=== PATIENT | female | born 1990 | race American Indian/Alaskan Native ===

== ENCOUNTER 2017-12-03 10:26 | Emergency (ER) | payer BC ==
[2017-12-03 10:50] VITALS: BP 125/69
[2017-12-03 11:21] LABS: Bacteria,Urine 1+ /HPF (Negative); Bilirubin,Urine NEG (Negative); Blood,Urine NEG (Negative); Color,Urine Yellow (Yellow); Mucus,Urine 2+ /HPF; Protein,Urine <15 mg/dL mg/dL (Negative); Urobilinogen,Urine < 2.0 mg/dL (<2.0)
[2017-12-03 11:23] LABS: HCG Qualitative,Urine Positive (Negative)
--- NOTE | 2017-12-03 12:34 | Emergency Department Report ---
Blank Doc - Documentation Documentation: Patient is a 27-year-old female who had a positive test at home several days ago. Patient has experiencing some crampy lower abdominal discomfort. Pain is mostly on the left side as she was advised after calling a nurse hotline that she should come to the emergency department to rule out ectopic with an ultrasound. Patient is not bleeding there is no vaginal discharge dysuria time. Brief physical exam patient has a benign abdomen ultrasound will be done.
--- NOTE | 2017-12-03 14:14 | Ultrasound Report ---
FINAL REPORT PROCEDURE: US OB TRANSVAGINAL and transabdominal TECHNIQUE: Real-time transabdominal and transvaginal sonography of the uterus, placenta, amniotic fluid, adnexa, and fetus was performed with image documentation. Measurements were obtained to determine age/size. M-mode Doppler was used to document heartbeat. CPT 85166 and 29308 HISTORY: preg with vag bleeding COMPARISON: No prior studies are available for comparison. FINDINGS: Uterus measures 8.2 x 5.5 x 6.2 centimeters. Endometrium measures 18 millimeters in thickness. A small amount of endometrial fluid is present. No intrauterine gestational sac is seen. Cervix: Normal. Right Ovary: Normal. Left Ovary: There is a 2.4 centimeter simple cyst No free fluid or adnexal mass is identified IMPRESSION: No intrauterine gestational sac is seen. Cannot exclude early gestation or ectopic . Recommend follow-up.
--- NOTE | 2017-12-03 14:14 | Ultrasound Report ---
FINAL REPORT PROCEDURE: US OB TRANSVAGINAL and transabdominal TECHNIQUE: Real-time transabdominal and transvaginal sonography of the uterus, placenta, amniotic fluid, adnexa, and fetus was performed with image documentation. Measurements were obtained to determine age/size. M-mode Doppler was used to document heartbeat. CPT 94701 and 87959 HISTORY: preg with vag bleeding COMPARISON: No prior studies are available for comparison. FINDINGS: Uterus measures 8.2 x 5.5 x 6.2 centimeters. Endometrium measures 18 millimeters in thickness. A small amount of endometrial fluid is present. No intrauterine gestational sac is seen. Cervix: Normal. Right Ovary: Normal. Left Ovary: There is a 2.4 centimeter simple cyst No free fluid or adnexal mass is identified IMPRESSION: No intrauterine gestational sac is seen. Cannot exclude early gestation or ectopic . Recommend follow-up. PROCEDURE: TECHNIQUE: HISTORY: COMPARISON: FINDINGS: IMPRESSION:
--- NOTE | 2017-12-03 14:22 | Emergency Department Report ---
ED Female HPI - General Chief complaint: Abdominal Pain Stated complaint: ABDOMINAL PAIN Time Seen by Provider: 12/03/17 12:28 Source: patient Mode of arrival: Ambulatory Limitations: No Limitations - History of Present Illness Initial comments: 27-year-old female past medical history none 2 miscarriages and one child at home presents with complaint of concern for being . Patient apparently called nursing hotline that informed her to come to the ER for evaluation. Patient is awake alert and oriented 3 not in acute distress denies any abdominal pain whatsoever at the time of my interview. I specifically asked patient if she has had any vaginal bleeding whatsoever patient denies. Patient denies dysuria hematuria or increased urinary frequency or any vaginal discharge otherwise. Patient is fully lucid does not appear to be in any distress and nontoxic appearing. Accompanied by boyfriend at bedside. Patient does not currently have an SNA[facility]ER. Last menstrual period . Patient states that a few days ago she may have had brief episode of crampy pain but it has resolved and has not experienced it since. MD Complaint: other Onset/Timin -: month(s) Severity scale (0 -10): 0 Are you Now?: Yes Last Menstrual Period: 11/07/17 EDC: 08/14/18 - Related Data Sexually active: Yes : 4 Para: 1 A: 2 Previous Rx's Medication Instructions Recorded Last Taken Type Pnv No.95/Ferrous Fum/Folic AC 1 each PO QDAY #30 tablet 12/03/17 Unknown Rx [ Formula Tablet] Allergies Allergy/AdvReac Type Severity Reaction Status Date / Time No Known Allergies Allergy Unverified 12/03/17 10:50 ED Review of Systems ROS: Stated complaint: ABDOMINAL PAIN Other details as noted in HPI Constitutional: denies: chills, fever Eyes: denies: eye pain, eye discharge, vision change ENT: denies: ear pain, throat pain Respiratory: denies: cough, shortness of breath, wheezing Cardiovascular: denies: chest pain, palpitations Endocrine: no symptoms reported Gastrointestinal: denies: abdominal pain, nausea, diarrhea Genitourinary: denies: urgency, dysuria, discharge Musculoskeletal: denies: back pain, joint swelling, arthralgia Skin: denies: rash, lesions Neurological: denies: headache, weakness, paresthesias Psychiatric: denies: anxiety, depression Hematological/Lymphatic: denies: easy bleeding, easy bruising ED Past Medical Hx - Past Medical History Previous Medical History?: No - Social History Smoking Status: Never Smoker Substance Use Type: None - Medications Home Medications: Home Medications Medication Instructions Recorded Confirmed Last Taken Type Pnv No.95/Ferrous Fum/Folic AC 1 each PO QDAY #30 tablet 12/03/17 Unknown Rx [ Formula Tablet] ED Physical Exam - General Limitations: No Limitations General appearance: alert, in no apparent distress - Head Head exam: Present: atraumatic, normocephalic - Eye Eye exam: Present: normal appearance - ENT ENT exam: Present: mucous membranes moist - Neck Neck exam: Present: normal inspection - Respiratory Respiratory exam: Present: normal lung sounds bilaterally. Absent: respiratory distress - Cardiovascular Cardiovascular Exam: Present: regular rate, normal rhythm. Absent: systolic murmur, diastolic murmur, rubs, gallop - GI/Abdominal GI/Abdominal exam: Present: soft (abdomen is soft nontender and nondistended), normal bowel sounds - Extremities Exam Extremities exam: Present: normal inspection - Back Exam Back exam: Present: normal inspection - Neurological Exam Neurological exam: Present: alert, oriented X3 - Psychiatric Psychiatric exam: Present: normal affect, normal mood - Skin Skin exam: Present: warm, dry, intact, normal color. Absent: rash ED Course Vital Signs 12/03/17 10:46 Temperature 99.3 F Pulse Rate 88 Respiratory 18 Rate Blood Pressure 125/69 O2 Sat by Pulse 100 Oximetry ED Medical Decision Making - Medical Decision Making A/P: 1-urinalysis is unremarkable. HCG level 830. Ultrasound shows no intrauterine gestational sac at this time early ectopic versus early gestation. 2-I discussed case with Dr. Wolff 3-I advised patient that she needs [facility] follow-up for repeat ultrasound and repeat hCG levels. I specifically advised patient with ectopic precautions to return to the ED if she experiences vaginal hemorrhaging severe sharp abdominal pain with any associated nausea vomiting diaphoresis shortness of breath fever or chills. Patient stated she understood my instructions clearly and would follow-up 4- vitamins Critical care attestation.: If time is entered above; I have spent that time in minutes in the direct care of this critically ill patient, excluding procedure time. ED Disposition Clinical Impression: Early stage of Disposition: DC-01 TO HOME OR SELFCARE Is pt being admited?: No Does the pt Need Aspirin: No Condition: Stable Instructions: (ED), Ectopic (ED) Additional Instructions: Please follow up with [facility]. If you experience any bleeding nausea vomiting with associated sharp abdominal pain returns to the ED [facility]. Patient should obtain repeat blood work and ultrasound within 1-2 weeks. Prescriptions: Pnv No.95/Ferrous Fum/Folic AC [ Formula Tablet] 1 each PO QDAY #30 tablet Referrals: [facility] [Provider Group] - 3-5 Days [facility] [Provider Group] - 3-5 Days [facility] [Provider Group] - 3-5 Days Forms: Accompanied Note, Work/School Release Form(ED) Time of Disposition: 14:34
== END 2017-12-03 14:37 | disposition home or self-care (01) ==
LOC: ED 10:26
DX: O46.91 Antepartum hemorrhage, unspecified, first trimester (principal); Z3A.01 Less than 8 weeks gestation of pregnancy
CPT/HCPCS: 36415; 76801; 76817; 81001; 81025; 84702; 99284